=== PATIENT | male | born 1970 | race Caucasian/White ===

== ENCOUNTER 2016-11-27 15:54 | Emergency (ER) | payer OTHER ==
[~2016-11-27 15:54] MED LIST: PERCOCET 5/31 TABLET PO; ZOFRAN4 MG PO
[2016-11-27 16:38] LABS: BASOPHIL COUNT 0.1 K/uL (0-0.1); EOSINOPHIL (%) 2.1 % (0-5); EOSINOPHIL COUNT 0.3 K/uL (0-0.3); HEMATOCRIT 46.9 % (38.0-50.0); IMMATURE GRANULOCYTE (%) 0.4 % (0.0-0.7); IMMATURE GRANULOCYTE COUNT 0.5 K/uL; LYMPHOCYTE COUNT 3.5 K/uL (1.0-2.8); MCHC 35.6 G/DL (30.0-36.0); MCV 84.2 FL (86-99); MEAN PLAT.VOLUME 11.5 uM^3 (9.0-12.4); MONOCYTE (%) 7.2 % (3-12); MONOCYTE COUNT 0.9 K/uL (0-0.8); NEUTROPHIL (%) 62.5 % (45-76); NEUTROPHIL COUNT 8.2 K/uL (1.8-6.4); PLATELET COUNT 257 K/uL (156-360); RBC DIS.WIDTH-CV 13.3 % (11.8-14.6); RBC DIS.WIDTH-SD 40.8 % (39-53); RED BLOOD COUNT 5.57 M/uL (4.00-5.50); WHITE BLOOD COUNT 13.1 K/uL (4.1-10.2)
[2016-11-27 16:49] LABS: AMYLASE 44 IU/L (1-118); CHLORIDE 107 mEq/L (99-109); SODIUM 137 mEq/L (136-147)
[2016-11-27 16:51] LABS: GLUCOSE 99 mg/dL (70-99)
[2016-11-27 16:53] LABS: ANION GAP 11 MEQ/L (2-14)
[2016-11-27 16:54] LABS: SERUM ETHYL ALCOHOL < 10 mg/dL
[2016-11-27 16:55] LABS: GFR ESTIMATE (CALCULATED) > 59 mL/min/
[2016-11-27 16:56] LABS: UREA NITROGEN (BUN) 17 mg/dL (9-23)
[2016-11-27 16:58] LABS: LIPASE 20 U/L (1.0-51.0)
[2016-11-27 17:10] VITALS: BP 110/72
[2016-11-27] MEDS ORDERED: PERCOCET 5/31 TABLET PO (19:50)
[2016-11-27] MEDS ORDERED: ZOFRAN4 MG PO (19:50)
[2016-11-27] MEDS ORDERED: NAPROSYN500 MG PO (19:50)
== END 2016-11-27 20:36 | disposition home or self-care (01) ==
LOC: TRA → EME 15:54 → TRA 20:36
PROVIDERS: Emergency Medicine
DX: S82.831A Other fracture of upper and lower end of right fibula, initial encounter for closed fracture (principal); S32.009A Unspecified fracture of unspecified lumbar vertebra, initial encounter for closed fracture; M25.561 Pain in right knee; V49.40XA Driver injured in collision with unspecified motor vehicles in traffic accident, initial encounter; Z23 Encounter for immunization
CPT/HCPCS: 70450; 71010; 72125; 72129; 72132; 73560; 73590; 73600; 73630; 74177; 80048; 81003; 82150; 83690; 85025; 86850; 86900; 86901; 99281; 99285; G0480; J2405; J3010; J7030